=== PATIENT | female | born 1975 | race Two or more races ===

== ENCOUNTER 2021-01-15 18:45 | Emergency (ER) | payer OTHER ==
[~2021-01-15] VITALS: Ht 162.6 cm; Wt 61.0 kg
[~2021-01-15 18:45] MED LIST: NOCURR
[2021-01-15] MEDS ORDERED: IBUPROFEN 600 MG TABLET PO ONE (19:15)
[2021-01-15 19:48] VITALS: BP 147/90
== END 2021-01-15 20:43 | disposition home or self-care (01) ==
LOC: EMS 18:45
DX: S70.02XA Contusion of left hip, initial encounter (principal); F41.9 Anxiety disorder, unspecified; Z90.89 Acquired absence of other organs; V49.9XXA Car occupant (driver) (passenger) injured in unspecified traffic accident, initial encounter; Y93.89 Activity, other specified; Y92.89 Other specified places as the place of occurrence of the external cause; Y99.8 Other external cause status
CPT/HCPCS: 73503; 99283